=== PATIENT | male | born 2000 | race Caucasian/White ===

== ENCOUNTER 2022-09-22 11:45 | Emergency (ER) | payer OTHER, SELFPAY ==
[2022-09-22] VITALS (11 sets, daily range): BP systolic 123–141; BP diastolic 80–99; PULSE 60–76; RESP 8–21; TEMP 36.8; O2SAT 98–100
--- NOTE | ~2022-09-22 | XR_ITS ---
EXAMINATION: XR chest 2V DATE: 09/22/2022 12:33 INDICATION: Shortness of breath TECHNIQUE: PA and lateral views of the chest are obtained. COMPARISON: None available FINDINGS: The lungs are free of acute opacities. No pleural effusion or pneumothorax. The cardiomedia stinal silhouette is normal. The visualized bones and soft tissues are unremarkable. IMPRESSION: 1. No acute cardiopulmonary abnormality. Reviewed, dictated and finalized at location B.
--- NOTE | ~2022-09-22 | US_ITS ---
EXAMINATION: US abdomen limited DATE: 09/22/2022 14:38 INDICATION: Epigastric abdominal pain. Abnormal liver function tests. TECHNIQUE: Multiple grayscale and Doppler ultrasound images of the abdomen were obtained. COMPARISON: None FINDINGS: The visualized portions of the head and body of the pancreas are normal. The liver is miki l without focal lesion. There is normal flow in main portal vein. The gallbladder is normal in size. No gallstones or gallbladder wall thickening. There is no sonographic Knox sign. The common duct is normal and measures 4 mm. IMPRESSION: 1. Normal right upper quadrant ultrasound. Reviewed, dictated and finalized at location E.
--- NOTE | 2022-09-22 11:52 | ECG_ITS ---
Measurements Intervals [employer] Rate: 76 P: 69 KS: 152 QRS: 68 QRSD: 110 T: 63 QT: 349 QTc: 395 Interpretive Statements SINUS RHYTHM WITH SINUS ARRHYTHMIA ST ELEVATION IN ANTEROLAT/INF LEADS, PROBABLY EARLY REPOLARIZATION BORDERLINE ECG NO PREVIOUS ECG AVAILABLE FOR COMPARISON Electronically Signed On 09-22-2022 12:45:32 CDT by El Burgos D.O.
[2022-09-22 12:21] LABS: Basophils Absolute Auto 0.1 K/mm3 (0.0-0.1); Basophils Percent Auto 0.7 % (0.2-1.2); Eosinophils Absolute Auto 0.2 K/mm3 (0-0.3); Eosinophils Percent Auto 2.6 % (0-4.4); Hematocrit 50.1 % (42.0-52.0); Hemoglobin 17.5 g/dL (14.0-18.0); Immature Granulocyte Absolute 0.02 K/mm3 (0.00-0.031); Immature Granulocyte Percent A 0.3 % (0-0.5); Lymphocytes Absolute Auto 1.43 K/mm3 (0.9-3.2); Lymphocytes Percent Auto 20.9 % (18.3-44.2); Mean Corpuscular HGB Conc 34.9 g/dl (32-36); Mean Corpuscular Hemoglobin 30.9 pg (26-34); Mean Corpuscular Volume 88.5 fl (80-100); Mean Platelet Volume 10.3 fl (7.4-10.4); Monocytes Absolute Auto 0.8 K/mm3 (0.1-0.6); Monocytes Percent Auto 11.3 % (2.6-8.5); Neutrophils Absolute Auto 4.4 K/mm3 (1.3-6.7); Neutrophils Percent Auto 64.2 % (45.5-73.1); Platelet Count Result 274 k/mm3 (150-375); Red Blood Count 5.66 M/mm3 (4.6-6.20); White Blood Count 6.8 K/mm3 (4.5-10.0)
--- NOTE | 2022-09-22 12:24 | ED.GENADULT ---
HPI - General Adult General Chief complaint: Shortness of Breath/Dyspnea Stated complaint: sob Time Seen by Provider: 09/22/22 11:58 History of Present Illness HPI narrative: 22-year-old male presented emergency department for evaluation of epigastric and substernal burning/pressure. Patient states that he was having the symptoms last night when he went to bed. Patient does report having bread sticks and tomato sauce last night. Patient does sleep on his chest and when he woke up this morning at 5 AM he was having the presence of the chest pressure. Patient did try and drink some water with no significant improvement. Patient states that the pressure is increased with respirations but denies any radiation of the symptoms. Patient reports he has been running daily for the last 5 weeks but denies any exertional chest pain or shortness of breath. Patient denies any prior history of cancer, hormone replacement, coughs colds fevers, falls or injuries, cancer, long car rides or plane trips. Related Data Allergies Allergy/AdvReac Type Severity Reaction Status Date / Time No Known Allergies Allergy Verified 09/22/22 12:00 Review of Systems Review of Systems: All systems reviewed & are unremarkable except as noted in HPI and below PMFSH Past Medical History Medical History (Updated 09/22/22 @ 14:57 by Minesh Conklin MD) Abnormal fasting glucose (10/01/21) Fasting glucose 102 on 10/01/2021. BMI 26.0-26.9,adult COVID-19 (03/13/21) tested positive 03/16/2021. Fully vaccinated and COVID illness Encounter for wellness examination in adult Fatigue fatigue after COVID Marijuana use smokes twice daily Overweight (BMI 25.0-29.9) Surgical History Surgical History (Updated 06/16/21 @ 15:28 by Mildred Barajas MA) History of hernia repair (~2000) Family History Family History (Updated 06/16/21 @ 15:30 by Mildred Barajas MA) Mother Asthma Hypertension Depression Anxiety Thyroid disorder Sibling Asthma Grandparent Cancer Hypertension Anxiety Depression Grandparent Hypertension Social History Social History (Updated 06/16/21 @ 16:04 by Mildred Barajas MA) Smoking status: Never smoker Alcohol intake: never Substance use: current Substance use type: marijuana Exam Narrative: APPEARANCE: Well appearing, no pain, no distress, well-nourished. HEAD: normocephalic, atraumatic. EYES: PERRLA/EOMI, conjunctivae clear. NOSE: Normal no drainage NECK: Supple. No adenopathy, no masses. RESPIRATORY: Airway patent, respirations nonlabored. Clear to auscultation bilaterally, no rales, rhonchi, wheezing. CARDIOVASCULAR: Regular rate and rhythm without murmurs rubs or gallops. ABDOMINAL: Soft, nontender, nondistended, normal bowel sounds MUSCULOSKELETAL: Moves all extremities. Strength/ROM intact, No edema, No calf tenderness. NEURO: Alert. Cranial nerves II through XII intact. Good gait. Good coordination SKIN: Warm, dry. Normal Color Course Course Emergency Course: 22-year-old male presented to the ED for evaluation of chest pressure. EKG shows normal sinus with sinus arrhythmia and evidence of early repole. Patient is afebrile with no leukocytosis and a stable hemoglobin. Patient is being treated with a GI cocktail to see if this helps with his symptoms. Patient and family were updated on the plan for treatment. Patient is afebrile with no leukocytosis and has a stable hemoglobin. Patient did have an elevated T. bili. Ultrasound was ordered to evaluate for cholecystitis or gallstones. Patient had a negative right upper quadrant ultrasound. Patient did feel improved after the GI cocktail. Patient was advised to follow a bland diet and to take Prilosec for 14 days. Patient was started on Protonix in the emergency department. Patient was updated on results and was comfortable with the plan for discharge and close follow-up. Vital Signs Vital signs: Vital Signs Temperature 98.2
[2022-09-22] MEDS: BELLADONNA ALK/PHENOB ELIX 10 ML, MAG HYDROX/ALUMINUM HYD/SIMETH 30 ML, LIDOCAINE HCL 2... PO (12:36)
[2022-09-22 13:02] LABS: Alanine Aminotransferase 28 U/L (6-50); Albumin Level 5.1 g/dL (3.5-5.1); Alkaline Phosphatase 95 U/L (38-126); Anion Gap 7 mmol/L (8-16); Aspartate Amino Transferase 36 U/L (17-59); Bilirubin,Total 2.8 mg/dL (0.2-1.3); Blood Urea Nitrogen 16 mg/dL (9-20); Calcium 9.5 mg/dL (8.4-10.2); Carbon Dioxide 27 mmol/L (22-30); Chloride 103 mmol/L (98-107); Estimated CRCL calculation 126 ml/min; Estimated Glomerular Filt Rate > 60; Glucose 98 mg/dL (65-110); Potassium 4.3 mmol/L (3.4-5.0); Sodium 137 mmol/L (137-145)
[2022-09-22 13:12] LABS: Troponin I < 0.012 ng/mL (0.000-0.034)
== END 2022-09-22 15:19 | disposition home or self-care (01) ==
PROVIDERS: Emergency Medicine; Emergency Provider Emergency Medicine; PCP Family Medicine
DX: R07.9 Chest pain, unspecified (principal); R10.13 Epigastric pain
CPT/HCPCS: 36415; 71046; 76705; 80053; 84484; 85025; 93005; 99284; A9270